=== PATIENT | male | born 1990 | race Hispanic/Latino ===

== ENCOUNTER 2018-09-04 18:09 | Emergency (ER) | payer OTHER, SELFPAY ==
[2018-09-04 18:44] LABS: Hematocrit 43.6 % (39.6-49.0); MPV 7.9 fL (7.6-11.3); RBC Red Blood Cell Count 4.76 M/uL (4.33-5.43)
[2018-09-04 19:08] LABS: Albumin 4.2 g/dL (3.4-5.0); Bilirubin Total 0.6 mg/dL (0.2-1.0); Potassium 3.9 mmol/L (3.5-5.1); Protein, Total 7.8 g/dL (6.4-8.2)
--- NOTE | 2018-09-04 19:09 | ER ---
Nurse's Notes [facility] Name: Jose Espinosa Age: 28 yrs Sex: Male : 1990 Arrival Date: 09/04/2018 Time: 18:12 Bed 4 Private MD: Diagnosis: Heat injury;Dehydration Presentation: 09/04 18:13 Presenting complaint: EMS states: pt was at work and had been for about 12 hours, tw2 started feeling like he got to hot, then began feeling dizzy and lightheaded, vs stable, tachycardic. Transition of care: patient was not received from another setting of care. Onset of symptoms was September 04, 2018. Risk Assessment: Do you want to hurt yourself or someone else? Patient reports no desire to harm self or others. Initial Sepsis Screen: Does the patient meet any 2 criteria? No. Patient's initial sepsis screen is negative. Does the patient have a suspected source of infection? No. Patient's initial sepsis screen is negative. Care prior to arrival: IV initiated. 20 GA, in the left antecubital area. 18:13 Method Of Arrival: EMS: [facility] tw2 18:13 Acuity: VISHNU 3 tw2 Triage Assessment: 18:16 General: Appears in no apparent distress. Behavior is calm, cooperative, appropriate tw2 for age. Pain: Denies pain. EENT: No signs and/or symptoms were reported regarding the EENT system. Neuro: Level of Consciousness is awake, alert, obeys commands, Oriented to person, place, time, situation, Denies dizziness, pt denies lightheadedness at this time.. Cardiovascular: Heart tones S1 S2 Patient's skin is warm and dry. Respiratory: Airway is patent Respiratory effort is even, unlabored, Respiratory pattern is regular, symmetrical, Breath sounds are clear bilaterally. GI: No signs and/or symptoms were reported involving the gastrointestinal system. Abdomen is flat, Bowel sounds present X 4 quads. : No signs and/or symptoms were reported regarding the genitourinary system. Derm: Skin is intact, is healthy with good turgor, Skin is clammy, Skin temperature is warm. Musculoskeletal: Range of motion: intact in all extremities. Historical: - Allergies: 18:16 No Known Allergies; tw2 - Home Meds: 18:16 None [Active]; tw2 - PMHx: 18:16 None; tw2 - PSHx: 18:16 None; tw2 - Immunization history:: Adult Immunizations. - Social history:: Smoking status: . - Ebola Screening: : Patient denies travel to an Ebola-affected area in the 21 days before illness onset. Screenin:15 Abuse screen: Denies threats or abuse. Nutritional screening: No deficits noted. tw2 Tuberculosis screening: No symptoms or risk factors identified. Fall Risk None identified. Assessment: 18:17 Reassessment: see triage assessment. tw2 19:10 Reassessment: Patient appears in no apparent distress at this time. Patient and/or cc3 family updated on plan of care and expected duration. Pain level reassessed. Patient is alert, oriented x 3, equal unlabored respirations, skin warm/dry/pink. Received this male patient from morning shift TRACEY Gar as a case of heat exhaustion with IV cannula gauge 20 at the left ACV saline locked. Patient denies pain at this time. 19:25 Reassessment: Patient appears in no apparent distress at this time. Patient and/or cc3 family updated on plan of care and expected duration. Pain level reassessed. Patient is alert, oriented x 3, equal unlabored respirations, skin warm/dry/pink. Dr. Portillo discharged the patient home and said no need for urine sample, no prescription given. IV cannula removed and patient left ER vitally stable and ambulatory with his family. Patient denies pain at this time. Patient states feeling better. Patient states symptoms have improved. Vital Signs: 18:14 Pulse 120; Resp 17; Pulse Ox 97% on R/A; Weight 106.59 kg (R); Height 5 ft. 9 in. tw2 (175.26 cm) (R); Pain 0/10; 18:14 BP 152 / 62; sg 19:10 BP 146 / 67; Pulse 115; Resp 17 S; Temp 98.1(O); Pulse Ox 98% on R/A; cc3 18:14 Body Mass Index 34.70 (106.59 kg, 175.26 cm) tw2 ED Course: 18:12 Patient arrived in ED. aa5 18:12 Rin Padron RN is Primary Nurse. tw2 18:14 Evan Portillo MD is Attending Physician. ps1 18:14 Triage completed. tw2 18:15 Arm band placed on. EKG completed in triage. Results shown to MD. tw2 18:15 Bed in low position. Call light in reach. Side rails up X 1. media monitor on. Pulse tw2 ox on. NIBP on. 18:30 Initial lab(s) drawn, by me, sent to lab. Maintain EMS IV. Dressing intact. Site clean sg \T\ dry. Gauge \T\ site: 20 g LAC. 19:00 Report given to TRACEY Gonzales. tw2 19:04 Primary Nurse role handed off by Rin Padron, TRACEY cc3 19:04 Janet Lockwood is Primary Nurse. cc3 19:25 No provider procedures requiring assistance completed. IV discontinued, intact, cc3 bleeding controlled, No redness/swelling at site. Pressure dressing applied. Administered Medications: No medications were administered Outcome: 19:08 Discharge ordered by MD. ps1 19:25 Patient left the ED. cc3 19:25 Discharged to home ambulatory, with family. cc3 19:25 Condition: stable 19:25 Discharge instructions given to patient, Instructed on discharge instructions, follow up and referral plans. Demonstrated understanding of instructions, follow-up care. Signatures: Navid Knox RN RN Sheryl Hedrick RN RN aa5 Rin Padron RN RN tw2 Evan Portillo MD MD ps1 Janet Lockwood cc3 Corrections: (The following items were deleted from the chart) 18:40 18:13 Care prior to arrival: None. tw2 sg 19:57 19:10 BP 146 / 67; Pulse 115bpm; Resp 17bpm; Spontaneous; Pulse Ox 98% RA; cc3 cc3
--- NOTE | 2018-09-04 19:09 | EDPHYS ---
Physician Documentation [facility] Name: Jose Espinosa Age: 28 yrs Sex: Male : 1990 Arrival Date: 09/04/2018 Time: 18:12 Bed 4 Private MD: ED Physician Evan Portillo HPI: 09/04 18:14 This 28 yrs old Male presents to ER via Unassigned with complaints of Heat ps1 Exposure. 18:14 patient working at [employer] and had feelings of heat exhaustion. Worked 12 hour shift in ps1 sun. Temp 90 ambient. Patient was sweaty and lightheaded. 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 Temp 98.5 oral. Patient was tachy HR 120 DATA SYSTEMS MANAGER and improving. . Historical: - Allergies: 18:16 No Known Allergies; tw2 - Home Meds: 18:16 None [Active]; tw2 - PMHx: 18:16 None; tw2 - PSHx: 18:16 None; tw2 - Immunization history:: Adult Immunizations. - Social history:: Smoking status: . - Ebola Screening: : Patient denies travel to an Ebola-affected area in the 21 days before illness onset. ROS: 18:14 Constitutional: Negative for fever, chills, and weight loss, Eyes: Negative for injury, ps1 pain, redness, and discharge, ENT: Negative for injury, pain, and discharge, Cardiovascular: Negative for chest pain, palpitations, and edema, Respiratory: Negative for shortness of breath, cough, wheezing, and pleuritic chest pain, Abdomen/GI: Negative for abdominal pain, nausea, vomiting, diarrhea, and constipation, Skin: Negative for injury, rash, and discoloration. 18:14 Neuro: Positive for near syncope. Exam: 18:14 Constitutional: This is a well developed, well nourished patient who is awake, alert, ps1 and in no acute distress. Head/Face: Normocephalic, atraumatic. Eyes: Pupils equal round and reactive to light, extra-ocular motions intact. Lids and lashes normal. Conjunctiva and sclera are non-icteric and not injected. Chest/axilla: Normal chest wall appearance and motion. Nontender with no deformity. No lesions are appreciated. 18:14 Respiratory: Lungs have equal breath sounds bilaterally, clear to auscultation and percussion. No rales, rhonchi or wheezes noted. No increased work of breathing, no retractions or nasal flaring. Abdomen/GI: Soft, non-tender, with normal bowel sounds. No distension or tympany. No guarding or rebound. No evidence of tenderness throughout. Skin: Warm, dry with normal turgor. Normal color with no rashes, no lesions, and no evidence of cellulitis. MS/ Extremity: Pulses equal, no cyanosis. Neurovascular intact. Full, normal range of motion. Neuro: Awake and alert, GCS 15, oriented to person, place, time, and situation. Cranial nerves II-XII grossly intact. Sensory grossly intact. 18:14 Cardiovascular: Rate: tachycardic, Rhythm: regular. Vital Signs: 18:14 Pulse 120; Resp 17; Pulse Ox 97% on R/A; Weight 106.59 kg (R); Height 5 ft. 9 in. tw2 (175.26 cm) (R); Pain 0/10; 18:14 BP 152 / 62; sg 19:10 BP 146 / 67; Pulse 115; Resp 17 S; Temp 98.1(O); Pulse Ox 98% on R/A; cc3 18:14 Body Mass Index 34.70 (106.59 kg, 175.26 cm) tw2 MDM: 18:24 Patient medically screened. ps1 19:09 Data reviewed: vital signs, nurses notes, and as a result, I will discharge patient. ps1 Counseling: I had a detailed discussion with the patient and/or guardian regarding: the historical points, exam findings, and any diagnostic results supporting the discharge/admit diagnosis, lab results. 09/04 18:20 Order name: CBC w/o diff; Complete Time: 18:50 ps1 09/04 18:20 Order name: CMP; Complete Time: 19:09 ps1 Administered Medications: No medications were administered Disposition: 09/04/18 19:08 Discharged to Home. Impression: Heat injury, Dehydration. - Condition is Stable. - Discharge Instructions: Heat Exhaustion Information. - Medication Reconciliation Form, Thank You Letter, Antibiotic Education, Prescription Opioid Use form. - Follow up: Private Physician; When: As needed; Reason: Recheck today's complaints, Continuance of care, Re-evaluation by your physician. - Problem is new. - Symptoms have improved. Signatures: Dispatcher [employer] Rin Sagastume RN RN tw2 Evna Portillo MD MD ps1 Janet Lockwood cc3 Corrections: (The following items were deleted from the chart) 19:25 19:08 09/04/2018 19:08 Discharged to Home. Impression: Heat injury; Dehydration. cc3 Condition is Stable. Forms are Medication Reconciliation Form, Thank You Letter, Antibiotic Education, Prescription Opioid Use. Follow up: Private Physician; When: As needed; Reason: Recheck today's complaints, Continuance of care, Re-evaluation by your physician. Problem is new. Symptoms have improved. ps1
[2018-09-04 19:29] VITALS: BP 152/62; O2SAT 97
--- NOTE | 2018-09-05 10:31 | EKG ---
Test Date: 2018-09-04 Test Time: 18:13:38 Moving Picture Operator: MEASUREMENT RESULTS: Intervals: Rate: 121 WI: 126 QRSD: 76 QT: 314 QTc: 445 [place]: P: 22 WI: 126 QRS: -69 T: 31 INTERPRETIVE STATEMENTS: Sinus tachycardia Indeterminate axis Borderline ECG Compared to ECG 05/06/2012 20:49:14 Indeterminate axis now present Right superior axis no longer present Electronically Signed On 09-05-18 10:30:33 CDT by Fransico Benz
== END 2018-09-04 19:25 | disposition home or self-care (01) ==
LOC: ER 18:09
DX: T67.5XXA Heat exhaustion, unspecified, initial encounter (principal); E86.0 Dehydration; X32.XXXA Exposure to sunlight, initial encounter; Y93.89 Activity, other specified; Y92.69 Other specified industrial and construction area as the place of occurrence of the external cause; Y99.0 Civilian activity done for income or pay
CPT/HCPCS: 36415; 80053; 85027; 93005; 99284